=== PATIENT | male | born 1950 | race Caucasian/White ===

== ENCOUNTER 2018-07-12 02:09 | Observation (INO) ==
[2018-07-12] MEDS ORDERED: Isovue-370 500 ML BOTTLE IVP ONE (03:45)
--- NOTE | 2018-07-12 04:05 | Emergency Department Note ---
Disposition Clinical Impression: Intra abdominal hemorrhage, Supratherapeutic INR, Elevated troponin Disposition: Still a Patient Condition: Serious Referrals: Zohaib Palafox Jr, MD [Primary Care Provider] - Forms: ED Satisfaction Letter, Work/School Release Abdominal Pain HPI - General Chief Complaint: ED Abdominal Pain Stated Complaint: "Abd Swelling" Time Seen by Provider: 07/12/18 03:38 Source: patient Mode of arrival: private vehicle Limitations: no limitations Nursing Notes Reviewed: Yes Vital Signs Reviewed: Yes - History of Present Illness HPI Narrative: 68-year-old male history of prior CVA on Coumadin, status post CABG, CAD who presents to the ER with a complaint of abdominal pain, swelling, cough. He has had a cough for roughly 5 days. States he "felt like he was going to cough up the lung". Over the last 24 hours he has developed swelling to his left abdomen as well as pain there. States his last INR was checked a few weeks ago and he presumed it was normal as he was not called. He denies any hemoptysis, hematochezia, both appears no dysuria or hematuria. Pain is all left sided. Denies any trauma. No other complaints. Pt Subjective Complaint: abdominal pain Onset (ago): day(s) Consistency: constant Location: L flank Pain Severity: moderate Pain Scale: 8 Migration to: no migration Improves with: nothing Worsens with: nothing Treatments prior to arrival: none - Related Data Previous Rx's Medication Instructions Recorded levoFLOXacin [Levaquin] 500 mg PO DAILY #7 tablet 09/25/16 Allergies Allergy/AdvReac Type Severity Reaction Status Date / Time vancomycin Allergy Rash Verified 09/24/16 22:11 All systems ED: reviewed and negative except as stated. Cardiovascular: Denies: chest pain Respiratory: Reports: cough, dyspnea. Denies: sputum production Gastrointestinal: Reports: abdominal pain. Denies: nausea, vomiting, diarrhea, melena, hematochezia Genitourinary: Denies: dysuria, hematuria Abdominal Pain PMH - Past Medical History Medical history: Reports: CVA, hypertension, myocardial infarction Male Surgical History: Reports: coronary bypass (CABG), knee replacement, orthopedic, other, pacemaker/AICD Psychiatric history: Reports: no psych history - Social History Smoking status: Current every day smoker Alcohol use: Reports: occasionally Drug use: Reports: none Physical Exam - General Limitations: no limitations General appearance: alert, in no apparent distress - Head Head exam: atraumatic, normocephalic, normal inspection - Eye Eye exam: Present: normal appearance - ENT ENT exam: normal exam - Neck Neck exam: Present: normal inspection - Chest Chest inspection: Present: normal inspection, symmetric chest wall rise - Respiratory Respiratory exam: Present: normal lung sounds bilaterally - Cardiovascular Cardiovascular exam: Present: regular rate, normal rhythm, normal heart sounds - Abdominal Exam Abdominal exam: Present: soft, tenderness (Moderate left flank tenderness. There is an overlying area of ecchymosis of the lower left chest wall as well as the left flank. No anterior abdominal wall tenderness). Absent: distention, guarding, rigidity - Extremities Exam Extremities exam: Present: normal inspection, full ROM - Expanded Upper Extremity Exam Shoulder exam: Present: normal inspection, full ROM Arm exam: Present: normal inspection, full ROM Elbow exam: Present: normal inspection, full ROM Forearm/Wrist exam: Present: normal inspection, full ROM Hand exam: Present: normal inspection, full ROM - Expanded Lower Extremity Exam Hip/Pelvis exam: Present: normal inspection, full ROM Upper leg exam: Present: normal inspection, full ROM Knee exam: Present: normal inspection, full ROM Lower leg exam: Present: normal inspection, full ROM Ankle exam: Present: normal inspection, full ROM Foot/toe exam: Present: normal inspection, full ROM - Skin Skin exam: Present: warm, dry Course Course Narrative: Patient seen and examined. Vital signs reviewed. Plan for CT imaging of the chest abdomen pelvis, labs and repeat evaluation. - Reevaluation(s) Reevaluation #1: I pulled up the patient's imaging with concern for what I perceive his intra-abdominal blood. Discussed with the interpreting radiologist who reviewed the chest CT. He believes at this point this could be from the abdominal wall with hemorrhage into the abdominal cavity and retroperitoneal space. Discussed potentially speaking with interventional radiology or obtaining an angiogram. - Consultations Consultation #1: I spoke with the interventional radiology Department concerning this patient. Radiologist will be and around 8 AM. Discussed the patient's history, exam as well as imaging and concerns. Request to put in a formal consult and they will evaluate the patient. Vital Signs Temperature 98.0 F 07/12/18 02:26 Pulse Rate 85 07/12/18 02:26 Respiratory Rate 18 07/12/18 02:26 Blood Pressure 105/74 07/12/18 02:26 O2 Sat by Pulse Oximetry 97 07/12/18 02:26 Temperature 98.0 F 07/12/18 02:26 Pulse Rate 71 07/12/18 07:21 Respiratory Rate 14 07/12/18 07:21 Blood Pressure 139/81 07/12/18 07:21 O2 Sat by Pulse Oximetry 98 07/12/18 07:21 Oxygen Delivery Oxygen Delivery Room Air Abdominal Pain - MDM Narrative Medical decision making narrative: 68-year-old male with a supratherapeutic INR presenting with an atraumatic what appears to be intra-abdominal hemorrhage. He is otherwise in no distress and hemodynamically stable. Case discussed with radiology as well as interventional radiology. Awaiting formal interventional radiology consultation at the time of this documentation. The patient is signed out to day shift team pending final disposition. - Lab Data Lab results reviewed: Yes I reviewed the patient's lab results. Result diagrams: 07/12/18 04:33 07/12/18 04:33 Lab Results 07/12/18 07/12/18 07/12/18 Range/Units 04:33 04:33 04:33 WBC 8.5 (4.3-11.1) K/mcL RBC 4.40 (4.19-5.50) M/mcL Hgb 12.3 L (12.9-16.9) g/dL Hct 37.9 (37.5-50.1) % MCV 86.1 (83.0-100.0) fL MCH 28.0 (28.0-33.3) pg MCHC 32.5 (31.6-35.5) g/dL RDW 14.0 (11.5-14.5) % Plt Count 181 (140-400) K/mcL MPV 10.7 (9.4-12.4) fL Immature Gran % 0.6 (0-4) % Seg Neutrophils % 80.1 % Lymphocytes % 10.7 % Monocytes % 7.3 % Eosinophils % 0.9 % Basophils % 0.4 % Neutrophils # 6.8 (1.6-8.9) K/mcL Lymphocytes # 0.9 (0.6-4.6) K/mcL Monocytes # 0.6 (0.0-1.3) K/mcL Eosinophils # 0.1 (0.0-0.6) K/mcL Basophils # 0.0 (0.0-0.2) K/mcL PT 49.9 H* (9.4-12.1) Seconds INR 4.4 H* APTT 41.9 H (26.0-36.0) Seconds Sodium (136-145) mEq/L Potassium (3.5-5.1) mEq/L Chloride (98-107) mEq/L Carbon Dioxide (23-29) mEq/L BUN (8-23) mg/dL Creatinine (0.70-1.30) mg/dL Est GFR ( Amer) (> 60) Est GFR (Non-Af Amer) (> 60) BUN/Creatinine Ratio (6-26) Glucose (70-105) mg/dL Calculated Osmolality (280-300) Calcium (8.6-10.3) mg/dL Total Bilirubin (0.3-1.0) mg/dL Direct Bilirubin (0.0-0.2) mg/dL Indirect Bilirubin (0.0-1.2) mg/dL AST (13-39) Units/L ALT (7-52) Units/L Alkaline Phosphatase (34-104) Units/L Troponin I (< 0.04) ng/mL Serum Total Protein (6.4-8.9) g/dL Albumin (3.5-5.7) g/dL Globulin (2.4-3.5) g/dL Albumin/Globulin Ratio (1.1-2.2) Lipase (11-82) Units/L Urine Color Dark Yellow (Yellow) Urine Clarity Cloudy A (Clear) Urine pH 5.0 (5.0-8.0) pH Units Ur Specific [place] 1.027 H (1.010-1.025) Urine Protein 30 H (Neg-Trace) mg/dL Urine Glucose (UA) Normal (Normal) mg/dL Urine Ketones Trace H (Negative) mg/dL Urine Blood Negative (Negative) Urine Nitrite Negative (Negative) Urine Bilirubin Small H (Negative) Urine Urobilinogen Normal (Normal) mg/dL Ur Leukocyte Esterase Negative (Negative) Urine Microscopic RBC 3-5 H (0-3) per hpf Urine Microscopic WBC 5-15 H (0-3) per hpf Ur Squamous Epith Cells Many H (None-Few) per lpf Urine Bacteria None Seen (None-Few) per hpf Hyaline Casts Few (None-Few) per lpf Urine Yeast SOFTWARE SPECIALIST Ur Culture Indicated? NO (NO) 07/12/18 Range/Units 04:33 WBC (4.3-11.1) K/mcL RBC (4.19-5.50) M/mcL Hgb (12.9-16.9) g/dL Hct (37.5-50.1) % MCV (83.0-100.0) fL MCH (28.0-33.3) pg MCHC (31.6-35.5) g/dL RDW (11.5-14.5) % Plt Count (140-400) K/mcL MPV (9.4-12.4) fL Immature Gran % (0-4) % Seg Neutrophils % % Lymphocytes % % Monocytes % % Eosinophils % % Basophils % % Neutrophils # (1.6-8.9) K/mcL Lymphocytes # (0.6-4.6) K/mcL Monocytes # (0.0-1.3) K/mcL Eosinophils # (0.0-0.6) K/mcL Basophils # (0.0-0.2) K/mcL PT (9.4-12.1) Seconds INR APTT (26.0-36.0) Seconds Sodium 141 (136-145) mEq/L Potassium 3.8 (3.5-5.1) mEq/L Chloride 106 (98-107) mEq/L Carbon Dioxide 24 (23-29) mEq/L BUN 23 (8-23) mg/dL Creatinine 1.39 H (0.70-1.30) mg/dL Est GFR ( Amer) > 60 (> 60) Est GFR (Non-Af Amer) 51 L (> 60) BUN/Creatinine Ratio 17 (6-26) Glucose 163 H (70-105) mg/dL Calculated Osmolality 299 (280-300) Calcium 8.5 L (8.6-10.3) mg/dL Total Bilirubin 0.7 (0.3-1.0) mg/dL Direct Bilirubin 0.2 (0.0-0.2) mg/dL Indirect Bilirubin 0.5 (0.0-1.2) mg/dL AST 29 (13-39) Units/L ALT 27 (7-52) Units/L Alkaline Phosphatase 81 (34-104) Units/L Troponin I 0.05 H* (< 0.04) ng/mL Serum Total Protein 6.6 (6.4-8.9) g/dL Albumin 3.8 (3.5-5.7) g/dL Globulin 2.8 (2.4-3.5) g/dL Albumin/Globulin Ratio 1.4 (1.1-2.2) Lipase 14 (11-82) Units/L Urine Color (Yellow) Urine Clarity (Clear) Urine pH (5.0-8.0) pH Units Ur Specific [place] (1.010-1.025) Urine Protein (Neg-Trace) mg/dL Urine Glucose (UA) (Normal) mg/dL Urine Ketones (Negative) mg/dL Urine Blood (Negative) Urine Nitrite (Negative) Urine Bilirubin (Negative) Urine Urobilinogen (Normal) mg/dL Ur Leukocyte Esterase (Negative) Urine Microscopic RBC (0-3) per hpf Urine Microscopic WBC (0-3) per hpf Ur Squamous Epith Cells (None-Few) per lpf Urine Bacteria (None-Few) per hpf Hyaline Casts (None-Few) per lpf Urine Yeast Ur Culture Indicated? (NO) - Radiology Data Radiology results reviewed: Yes I reviewed the patient's radiology results. Abdomen/Pelvis CT 07/12/18 03:45 IMPRESSION: There is left lateral abdominal wall hemorrhage with adjacent hemorrhage extending into the abdominal cavity. There is also a small amount of retroperitoneal and intraperitoneal hemorrhage without evidence for traumatic visceral injury. CT angiography of the abdomen and pelvis could be considered to localize a source of bleeding. Critical results were called by Dr. Antione Quintero MD to the patient's physician on 07/12/2018 at 06:53. D/ / Antione Quintero MD / Antione Quintero MD Interpreting Provider: Antione Quintero MD Chest CT 07/12/18 03:45 IMPRESSION: 1. Left chest wall findings most likely represent intramuscular hemorrhage. This extends into the abdomen which will be dictated separately. 2. Right lower lobe airspace disease could represent aspiration or pneumonia. 3. Interval decrease in the size of the nodule in the middle lobe consistent with benign etiology. D/ / Antione Quintero MD / Antione Quintero MD Interpreting Provider: Antione Quintero MD - EKG Data EKG attestation: Yes I reviewed and interpreted this EKG. EKG results narrative: EKG demonstrates a ventricularly paced rhythm with a rate of 77 beats or minute. S.B.A.R. - S.B.A.R. Situation: Demographics, MOA Background: Presenting Complaint, Relevant PMH, Meds, & Allergies Assessment: Course and respsone to treatment, Exam Concerns, Patient/Family Expectation, Pertinant Lab Results Recommendation: Barrier(s) to disposition, Recommendation based on pending studies, treatments, or consults S.B.A.R. Report Given to: Drs. Mann/Conrado Orozco Repor Time: 07:27
[2018-07-12 05:08] LABS: Basophils % 0.4 %; Eosinophils # 0.1 K/mcL (0.0-0.6); Eosinophils % 0.9 %; Hematocrit 37.9 % (37.5-50.1); Hemoglobin 12.3 g/dL (12.9-16.9); Immature Granulocytes % 0.6 % (0-4); Lymphocytes # 0.9 K/mcL (0.6-4.6); Lymphocytes % 10.7 %; Mean Corpuscular HGB Conc 32.5 g/dL (31.6-35.5); Mean Corpuscular Volume 86.1 fL (83.0-100.0); Mean Platelet Volume 10.7 fL (9.4-12.4); Monocytes # 0.6 K/mcL (0.0-1.3); Monocytes % 7.3 %; Neutrophils # 6.8 K/mcL (1.6-8.9); Platelet Count 181 K/mcL (140-400); Segmented Neutrophils % 80.1 %
[2018-07-12 05:16] LABS: Bilirubin,Urine Small (Negative); Blood,Urine Negative (Negative); Clarity,Urine Cloudy (Clear); Color,Urine Dark Yellow (Yellow); Glucose,Urine (UA) Normal (Normal); Ketones,Urine Trace mg/dL (Negative); Leukocyte Esterase,Urine Negative (Negative); Nitrite,Urine Negative (Negative); Protein,Urine 30 mg/dL (Neg-Trace); Specific Gravity,Urine 1.027 (1.010-1.025); Urobilinogen,Urine Normal (Normal)
[2018-07-12 05:18] LABS: Activated Partial Thrombo Time 41.9 Seconds (26.0-36.0)
[2018-07-12 05:19] LABS: Bacteria,Urine None Seen per hpf (None-Few); Squamous Epithelial Cell,Urine Many per lpf (None-Few)
[2018-07-12 05:21] LABS: INR 4.4; Prothrombin Time 49.9 Seconds (9.4-12.1)
[2018-07-12 05:29] LABS: Alanine Aminotransferase 27 Units/L (7-52); Albumin 3.8 g/dL (3.5-5.7); Albumin/Globulin Ratio 1.4 (1.1-2.2); Alkaline Phosphatase 81 Units/L (34-104); Aspartate Amino Transferase 29 Units/L (13-39); BUN/Creatinine Ratio 17 (6-26); Bilirubin,Direct 0.2 mg/dL (0.0-0.2); Bilirubin,Indirect 0.5 mg/dL (0.0-1.2); Bilirubin,Total 0.7 mg/dL (0.3-1.0); Blood Urea Nitrogen 23 mg/dL (8-23); Calcium 8.5 mg/dL (8.6-10.3); Carbon Dioxide 24 mEq/L (23-29); Chloride 106 mEq/L (98-107); Globulin 2.8 g/dL (2.4-3.5); Glucose 163 mg/dL (70-105); Lipase 14 Units/L (11-82); Osmolality,Calculated 299 (280-300); Potassium 3.8 mEq/L (3.5-5.1); Sodium 141 mEq/L (136-145); Total Protein 6.6 g/dL (6.4-8.9); eGFR For Non-African Americans 51 (> 60)
[2018-07-12 05:34] LABS: Troponin I 0.05 ng/mL (< 0.04)
--- NOTE | 2018-07-12 05:52 | Emergency Department Note ---
Disposition Clinical Impression: Intra abdominal hemorrhage, Supratherapeutic INR, Elevated troponin, Spontaneous hemorrhage, Elevated INR Disposition: Still a Patient Condition: Fair Referrals: Zohaib Palafox Jr, MD [Primary Care Provider] - Forms: ED Satisfaction Letter, Work/School Release General Adult HPI - General Chief complaint: ED Abdominal Pain Stated complaint: "Abd Swelling" Time Seen by Provider: 07/12/18 03:38 Source: patient Mode of arrival: private vehicle Limitations: no limitations Nursing Notes Reviewed: Yes Vital Signs Reviewed: Yes - History of Present Illness Pain Scale: 8 - Related Data Previous Rx's Medication Instructions Recorded levoFLOXacin [Levaquin] 500 mg PO DAILY #7 tablet 09/25/16 Allergies Allergy/AdvReac Type Severity Reaction Status Date / Time vancomycin Allergy Rash Verified 09/24/16 22:11 Cardiovascular: Denies: chest pain Respiratory: Reports: cough, dyspnea. Denies: sputum production Gastrointestinal: Reports: abdominal pain. Denies: nausea, vomiting, diarrhea, melena, hematochezia Genitourinary: Denies: dysuria, hematuria Past Medical History - Past Medical History Medical history: Reports: CVA, hypertension, myocardial infarction Psychiatric history: Reports: no psych history - Social History Smoking Status: Current every day smoker Smokeless Tobacco Status: No Alcohol use: Reports: occasionally Drug use: Reports: none Physical Exam - General Limitations: no limitations General appearance: alert, in no apparent distress Course Vital Signs Temperature 98.0 F 07/12/18 02:26 Pulse Rate 85 07/12/18 02:26 Respiratory Rate 18 07/12/18 02:26 Blood Pressure 105/74 07/12/18 02:26 O2 Sat by Pulse Oximetry 97 07/12/18 02:26 Temperature 98.0 F 07/12/18 02:26 Pulse Rate 71 07/12/18 07:21 Respiratory Rate 14 07/12/18 07:21 Blood Pressure 139/81 07/12/18 07:21 O2 Sat by Pulse Oximetry 98 07/12/18 07:21 Oxygen Delivery Oxygen Delivery Room Air Medical Decision Making - Medical Records Medical records reviewed: Yes I reviewed the patient's medical records. - Lab Data Lab results reviewed: Yes I reviewed the patient's lab results. Result diagrams: 07/12/18 04:33 07/12/18 04:33 Lab Results 07/12/18 07/12/18 07/12/18 Range/Units 04:33 04:33 04:33 WBC 8.5 (4.3-11.1) K/mcL RBC 4.40 (4.19-5.50) M/mcL Hgb 12.3 L (12.9-16.9) g/dL Hct 37.9 (37.5-50.1) % MCV 86.1 (83.0-100.0) fL MCH 28.0 (28.0-33.3) pg MCHC 32.5 (31.6-35.5) g/dL RDW 14.0 (11.5-14.5) % Plt Count 181 (140-400) K/mcL MPV 10.7 (9.4-12.4) fL Immature Gran % 0.6 (0-4) % Seg Neutrophils % 80.1 % Lymphocytes % 10.7 % Monocytes % 7.3 % Eosinophils % 0.9 % Basophils % 0.4 % Neutrophils # 6.8 (1.6-8.9) K/mcL Lymphocytes # 0.9 (0.6-4.6) K/mcL Monocytes # 0.6 (0.0-1.3) K/mcL Eosinophils # 0.1 (0.0-0.6) K/mcL Basophils # 0.0 (0.0-0.2) K/mcL PT 49.9 H* (9.4-12.1) Seconds INR 4.4 H* APTT 41.9 H (26.0-36.0) Seconds Sodium (136-145) mEq/L Potassium (3.5-5.1) mEq/L Chloride (98-107) mEq/L Carbon Dioxide (23-29) mEq/L BUN (8-23) mg/dL Creatinine (0.70-1.30) mg/dL Est GFR ( Amer) (> 60) Est GFR (Non-Af Amer) (> 60) BUN/Creatinine Ratio (6-26) Glucose (70-105) mg/dL Calculated Osmolality (280-300) Calcium (8.6-10.3) mg/dL Total Bilirubin (0.3-1.0) mg/dL Direct Bilirubin (0.0-0.2) mg/dL Indirect Bilirubin (0.0-1.2) mg/dL AST (13-39) Units/L ALT (7-52) Units/L Alkaline Phosphatase (34-104) Units/L Troponin I (< 0.04) ng/mL Serum Total Protein (6.4-8.9) g/dL Albumin (3.5-5.7) g/dL Globulin (2.4-3.5) g/dL Albumin/Globulin Ratio (1.1-2.2) Lipase (11-82) Units/L Urine Color Dark Yellow (Yellow) Urine Clarity Cloudy A (Clear) Urine pH 5.0 (5.0-8.0) pH Units Ur Specific [place] 1.027 H (1.010-1.025) Urine Protein 30 H (Neg-Trace) mg/dL Urine Glucose (UA) Normal (Normal) mg/dL Urine Ketones Trace H (Negative) mg/dL Urine Blood Negative (Negative) Urine Nitrite Negative (Negative) Urine Bilirubin Small H (Negative) Urine Urobilinogen Normal (Normal) mg/dL Ur Leukocyte Esterase Negative (Negative) Urine Microscopic RBC 3-5 H (0-3) per hpf Urine Microscopic WBC 5-15 H (0-3) per hpf Ur Squamous Epith Cells Many H (None-Few) per lpf Urine Bacteria None Seen (None-Few) per hpf Hyaline Casts Few (None-Few) per lpf Urine Yeast TELEPHONE LINEWORKER Ur Culture Indicated? NO (NO) 07/12/18 Range/Units 04:33 WBC (4.3-11.1) K/mcL RBC (4.19-5.50) M/mcL Hgb (12.9-16.9) g/dL Hct (37.5-50.1) % MCV (83.0-100.0) fL MCH (28.0-33.3) pg MCHC (31.6-35.5) g/dL RDW (11.5-14.5) % Plt Count (140-400) K/mcL MPV (9.4-12.4) fL Immature Gran % (0-4) % Seg Neutrophils % % Lymphocytes % % Monocytes % % Eosinophils % % Basophils % % Neutrophils # (1.6-8.9) K/mcL Lymphocytes # (0.6-4.6) K/mcL Monocytes # (0.0-1.3) K/mcL Eosinophils # (0.0-0.6) K/mcL Basophils # (0.0-0.2) K/mcL PT (9.4-12.1) Seconds INR APTT (26.0-36.0) Seconds Sodium 141 (136-145) mEq/L Potassium 3.8 (3.5-5.1) mEq/L Chloride 106 (98-107) mEq/L Carbon Dioxide 24 (23-29) mEq/L BUN 23 (8-23) mg/dL Creatinine 1.39 H (0.70-1.30) mg/dL Est GFR ( Amer) > 60 (> 60) Est GFR (Non-Af Amer) 51 L (> 60) BUN/Creatinine Ratio 17 (6-26) Glucose 163 H (70-105) mg/dL Calculated Osmolality 299 (280-300) Calcium 8.5 L (8.6-10.3) mg/dL Total Bilirubin 0.7 (0.3-1.0) mg/dL Direct Bilirubin 0.2 (0.0-0.2) mg/dL Indirect Bilirubin 0.5 (0.0-1.2) mg/dL AST 29 (13-39) Units/L ALT 27 (7-52) Units/L Alkaline Phosphatase 81 (34-104) Units/L Troponin I 0.05 H* (< 0.04) ng/mL Serum Total Protein 6.6 (6.4-8.9) g/dL Albumin 3.8 (3.5-5.7) g/dL Globulin 2.8 (2.4-3.5) g/dL Albumin/Globulin Ratio 1.4 (1.1-2.2) Lipase 14 (11-82) Units/L Urine Color (Yellow) Urine Clarity (Clear) Urine pH (5.0-8.0) pH Units Ur Specific [place] (1.010-1.025) Urine Protein (Neg-Trace) mg/dL Urine Glucose (UA) (Normal) mg/dL Urine Ketones (Negative) mg/dL Urine Blood (Negative) Urine Nitrite (Negative) Urine Bilirubin (Negative) Urine Urobilinogen (Normal) mg/dL Ur Leukocyte Esterase (Negative) Urine Microscopic RBC (0-3) per hpf Urine Microscopic WBC (0-3) per hpf Ur Squamous Epith Cells (None-Few) per lpf Urine Bacteria (None-Few) per hpf Hyaline Casts (None-Few) per lpf Urine Yeast Ur Culture Indicated? (NO) - Radiology Data Radiology results reviewed: Yes I reviewed the patient's radiology results. Abdomen/Pelvis CT 07/12/18 03:45 IMPRESSION: There is left lateral abdominal wall hemorrhage with adjacent hemorrhage extending into the abdominal cavity. There is also a small amount of retroperitoneal and intraperitoneal hemorrhage without evidence for traumatic visceral injury. CT angiography of the abdomen and pelvis could be considered to localize a source of bleeding. Critical results were called by Dr. Antione Quintero MD to the patient's physician on 07/12/2018 at 06:53. D/ / Antione Quintero MD / Antione Quintero MD Interpreting Provider: Antione Quintero MD Chest CT 07/12/18 03:45 IMPRESSION: 1. Left chest wall findings most likely represent intramuscular hemorrhage. This extends into the abdomen which will be dictated separately. 2. Right lower lobe airspace disease could represent aspiration or pneumonia. 3. Interval decrease in the size of the nodule in the middle lobe consistent with benign etiology. D/ / Antione Quintero MD / Antione Quintero MD Interpreting Provider: Antione Quintero MD - EKG Data EKG #1 EKG attestation: Yes I reviewed and interpreted this EKG. EKG results narrative: EKG showed an atrial ventricular pacemaker with totally paced rhythm with a rate of 77. Critical Care Time Critical Care Time: Yes Total Critical Care Time: 40 Attestation: Critical care performed: Time is exclusive of separately billable procedures. Time includes: direct pa tient care, patient reassessment, coordination of patient care, interpretation of data (laboratory data, radiology data, and respiratory data), review of patient's medical records, medical consultation and documentation of patient care. Procedures included in critical care time: Procedures excluded from critical care time: Attestation Statement - Attestation Attestation: Lei Snow MD, personally evaluated this patient and discussed their management with the resident physician. I reviewed the resident's note and agree with the documented findings, medical decision making, and plan of care. 68-year-old male presents to the emergency department with a complaint of increasing swelling and discomfort in the left flank and left lateral abdominal area over the past 24 hours. Also some bruising noted to the area. Patient denies any fall or injury. He states he has been coughing a lot. No generalized abdominal pain. Patient is on Coumadin for atrial fibrillation. He has a pacemaker. No other abnormal bleeding or bruising. Patient's last INR at the anticoagulation clinic was on 06/27 and was 2.9. On examination patient is a well-developed well-nourished elderly male in no acute distress. He is alert and oriented 3. There is no cyanosis or diaphoresis. Breath sounds are clear and equal bilaterally. Heart regular rate and rhythm. Abdomen soft with normal bowel sounds. There is an area of swelling with increased firmness over the left flank area. Mild discoloration with some obvious ecchymosis over the inferior aspect laterally. EKG showed an atrial ventricular pacemaker with totally paced rhythm with a rate of 77. Labs reviewed. CTs reviewed. Dr. Portillo discussed the CTs with the radiologist. Interventional radiology was consulted for further evaluation of the patient's hemorrhaging. At shift change patient is signed out to the oncoming dayshift team, Dr. Camp and Dr. Mann.
[2018-07-12 05:56] LABS: Hyaline Casts,Urine Few per lpf (None-Few)
--- NOTE | 2018-07-12 07:28 | Emergency Department Note ---
Disposition Clinical Impression: Intra abdominal hemorrhage, Supratherapeutic INR, Elevated troponin, Spontaneous hemorrhage, Elevated INR Disposition: Admitted As Inpatient Condition: Good Referrals: Zohaib Palafox Jr, MD [Primary Care Provider] - Forms: ED Satisfaction Letter, Work/School Release General Adult HPI - General Chief complaint: ED Abdominal Pain Stated complaint: "Abd Swelling" Time Seen by Provider: 07/12/18 03:38 Source: patient Mode of arrival: private vehicle Limitations: no limitations - History of Present Illness Pain Scale: 0 - Related Data Previous Rx's Medication Instructions Recorded levoFLOXacin [Levaquin] 500 mg PO DAILY #7 tablet 09/25/16 Allergies Allergy/AdvReac Type Severity Reaction Status Date / Time vancomycin Allergy Rash Verified 09/24/16 22:11 Cardiovascular: Denies: chest pain Respiratory: Reports: cough, dyspnea. Denies: sputum production Gastrointestinal: Reports: abdominal pain. Denies: nausea, vomiting, diarrhea, melena, hematochezia Genitourinary: Denies: dysuria, hematuria Past Medical History - Past Medical History Medical history: Reports: CVA, hypertension, myocardial infarction Psychiatric history: Reports: no psych history - Social History Smoking Status: Current every day smoker Smokeless Tobacco Status: No Alcohol use: Reports: occasionally Drug use: Reports: none Physical Exam - General Limitations: no limitations General appearance: alert, in no apparent distress Course Course Narrative: Patient taken over at sign out from Dr. Moses and Dr. Melton. Patient's symptoms include concern for abdominal swelling and ecchymosis to the left side of the abdomen and flank. Patient states he is on Coumadin. Patient has had issues with elevated INR in the past. Patient denies any trauma or injections. Patient has had significant coughing episodes. Patient's INR was found to be elevated at 4.4. Vitamin K administered. Interventional radiology has are to been consulted and is going to evaluate the patient. Resting comfortably in bed, no acute distress, vital signs within normal limits, abdomen with mild tenderness left lower quadrant with associated overlying bruising most significant is a left lower lateral abdomen extending towards the left flank. Awaiting IR consult. PCC - Consultations Consultation #1: Case is discussed with interventional radiology, Dr. Law, patient has small intramuscular bleed which she believes he can seek medication through the abdominal wall into the retroperitoneal structures which is likely secondary to a previous abdominal wall hernia. The bleed is described as something that would not be amenable to embolization. Likely from a very small artery. Likely a slow bleed as this has been going on for over 24 hours. Recommend's reversal of of INR and continued monitoring of H&H. If H&H continues to drop patient m ay benefit from a CTA and further embolization. Given the time of day and amount of resources given throughout the day this would be something that would be able to be accomplished [facility]. I will further discuss this with the hospitalist and the patient will be admitted for further monitoring. Consultation #2: Discussed with hospitalist. Discussed the plan. Overall CAT scan does show concern for pneumonia. Patient will also be placed on antibiotics. H&H will continue to be monitored. If H&H drops, Interventional, will be recontacted and potentially undergo further treatment. Patient is expected to improve with PCC and reversal. Vital Signs Temperature 98.0 F 07/12/18 02:26 Pulse Rate 85 07/12/18 02:26 Respiratory Rate 18 07/12/18 02:26 Blood Pressure 105/74 07/12/18 02:26 O2 Sat by Pulse Oximetry 97 07/12/18 02:26 Temperature 98.0 F 07/12/18 02:26 Pulse Rate 71 07/12/18 07:21 Respiratory Rate 14 07/12/18 07:21 Blood Pressure 139/81 07/12/18 07:21 O2 Sat by Pulse Oximetry 98 07/12/18 07:21 Oxygen Delivery Oxygen Delivery Room Air Medical Decision Making - Lab Data Result diagrams: 07/12/18 04:33 07/12/18 04:33 Lab Results 07/12/18 07/12/18 07/12/18 Range/Units 04:33 04:33 04:33 WBC 8.5 (4.3-11.1) K/mcL RBC 4.40 (4.19-5.50) M/mcL Hgb 12.3 L (12.9-16.9) g/dL Hct 37.9 (37.5-50.1) % MCV 86.1 (83.0-100.0) fL MCH 28.0 (28.0-33.3) pg MCHC 32.5 (31.6-35.5) g/dL RDW 14.0 (11.5-14.5) % Plt Count 181 (140-400) K/mcL MPV 10.7 (9.4-12.4) fL Immature Gran % 0.6 (0-4) % Seg Neutrophils % 80.1 % Lymphocytes % 10.7 % Monocytes % 7.3 % Eosinophils % 0.9 % Basophils % 0.4 % Neutrophils # 6.8 (1.6-8.9) K/mcL Lymphocytes # 0.9 (0.6-4.6) K/mcL Monocytes # 0.6 (0.0-1.3) K/mcL Eosinophils # 0.1 (0.0-0.6) K/mcL Basophils # 0.0 (0.0-0.2) K/mcL PT 49.9 H* (9.4-12.1) Seconds INR 4.4 H* APTT 41.9 H (26.0-36.0) Seconds Sodium (136-145) mEq/L Potassium (3.5-5.1) mEq/L Chloride (98-107) mEq/L Carbon Dioxide (23-29) mEq/L BUN (8-23) mg/dL Creatinine (0.70-1.30) mg/dL Est GFR ( Amer) (> 60) Est GFR (Non-Af Amer) (> 60) BUN/Creatinine Ratio (6-26) Glucose (70-105) mg/dL Calculated Osmolality (280-300) Calcium (8.6-10.3) mg/dL Total Bilirubin (0.3-1.0) mg/dL Direct Bilirubin (0.0-0.2) mg/dL Indirect Bilirubin (0.0-1.2) mg/dL AST (13-39) Units/L ALT (7-52) Units/L Alkaline Phosphatase (34-104) Units/L Troponin I (< 0.04) ng/mL Serum Total Protein (6.4-8.9) g/dL Albumin (3.5-5.7) g/dL Globulin (2.4-3.5) g/dL Albumin/Globulin Ratio (1.1-2.2) Lipase (11-82) Units/L Urine Color Dark Yellow (Yellow) Urine Clarity Cloudy A (Clear) Urine pH 5.0 (5.0-8.0) pH Units Ur Specific [place] 1.027 H (1.010-1.025) Urine Protein 30 H (Neg-Trace) mg/dL Urine Glucose (UA) Normal (Normal) mg/dL Urine Ketones Trace H (Negative) mg/dL Urine Blood Negative (Negative) Urine Nitrite Negative (Negative) Urine Bilirubin Small H (Negative) Urine Urobilinogen Normal (Normal) mg/dL Ur Leukocyte Esterase Negative (Negative) Urine Microscopic RBC 3-5 H (0-3) per hpf Urine Microscopic WBC 5-15 H (0-3) per hpf Ur Squamous Epith Cells Many H (None-Few) per lpf Urine Bacteria None Seen (None-Few) per hpf Hyaline Casts Few (None-Few) per lpf Urine Yeast [employer] Ur Culture Indicated? NO (NO) 07/12/18 Range/Units 04:33 WBC (4.3-11.1) K/mcL RBC (4.19-5.50) M/mcL Hgb (12.9-16.9) g/dL Hct (37.5-50.1) % MCV (83.0-100.0) fL MCH (28.0-33.3) pg MCHC (31.6-35.5) g/dL RDW (11.5-14.5) % Plt Count (140-400) K/mcL MPV (9.4-12.4) fL Immature Gran % (0-4) % Seg Neutrophils % % Lymphocytes % % Monocytes % % Eosinophils % % Basophils % % Neutrophils # (1.6-8.9) K/mcL Lymphocytes # (0.6-4.6) K/mcL Monocytes # (0.0-1.3) K/mcL Eosinophils # (0.0-0.6) K/mcL Basophils # (0.0-0.2) K/mcL PT (9.4-12.1) Seconds INR APTT (26.0-36.0) Seconds Sodium 141 (136-145) mEq/L Potassium 3.8 (3.5-5.1) mEq/L Chloride 106 (98-107) mEq/L Carbon Dioxide 24 (23-29) mEq/L BUN 23 (8-23) mg/dL Creatinine 1.39 H (0.70-1.30) mg/dL Est GFR ( Amer) > 60 (> 60) Est GFR (Non-Af Amer) 51 L (> 60) BUN/Creatinine Ratio 17 (6-26) Glucose 163 H (70-105) mg/dL Calculated Osmolality 299 (280-300) Calcium 8.5 L (8.6-10.3) mg/dL Total Bilirubin 0.7 (0.3-1.0) mg/dL Direct Bilirubin 0.2 (0.0-0.2) mg/dL Indirect Bilirubin 0.5 (0.0-1.2) mg/dL AST 29 (13-39) Units/L ALT 27 (7-52) Units/L Alkaline Phosphatase 81 (34-104) Units/L Troponin I 0.05 H* (< 0.04) ng/mL Serum Total Protein 6.6 (6.4-8.9) g/dL Albumin 3.8 (3.5-5.7) g/dL Globulin 2.8 (2.4-3.5) g/dL Albumin/Globulin Ratio 1.4 (1.1-2.2) Lipase 14 (11-82) Units/L Urine Color (Yellow) Urine Clarity (Clear) Urine pH (5.0-8.0) pH Units Ur Specific [place] (1.010-1.025) Urine Protein (Neg-Trace) mg/dL Urine Glucose (UA) (Normal) mg/dL Urine Ketones (Negative) mg/dL Urine Blood (Negative) Urine Nitrite (Negative) Urine Bilirubin (Negative) Urine Urobilinogen (Normal) mg/dL Ur Leukocyte Esterase (Negative) Urine Microscopic RBC (0-3) per hpf Urine Microscopic WBC (0-3) per hpf Ur Squamous Epith Cells (None-Few) per lpf Urine Bacteria (None-Few) per hpf Hyaline Casts (None-Few) per lpf Urine Yeast Ur Culture Indicated? (NO)
--- NOTE | 2018-07-12 07:30 | Emergency Department Note ---
Disposition Clinical Impression: Intra abdominal hemorrhage, Supratherapeutic INR, Elevated troponin, Spontaneous hemorrhage, Elevated INR Disposition: Admitted As Inpatient Condition: Fair Referrals: Zohaib Palafox Jr, MD [Primary Care Provider] - Forms: ED Satisfaction Letter, Work/School Release Time of Disposition: 08:43 General Adult HPI - General Chief complaint: ED Abdominal Pain Stated complaint: "Abd Swelling" Time Seen by Provider: 07/12/18 03:38 Source: patient Mode of arrival: private vehicle Limitations: no limitations - History of Present Illness Pain Scale: 0 - Related Data Previous Rx's Medication Instructions Recorded levoFLOXacin [Levaquin] 500 mg PO DAILY #7 tablet 09/25/16 Allergies Allergy/AdvReac Type Severity Reaction Status Date / Time vancomycin Allergy Rash Verified 09/24/16 22:11 Cardiovascular: Denies: chest pain Respiratory: Reports: cough, dyspnea. Denies: sputum production Gastrointestinal: Reports: abdominal pain. Denies: nausea, vomiting, diarrhea, melena, hematochezia Genitourinary: Denies: dysuria, hematuria Past Medical History - Past Medical History Medical history: Reports: CVA, hypertension, myocardial infarction Psychiatric history: Reports: no psych history - Social History Smoking Status: Current every day smoker Smokeless Tobacco Status: No Alcohol use: Reports: occasionally Drug use: Reports: none Physical Exam - General Limitations: no limitations General appearance: alert, in no apparent distress Course Vital Signs Temperature 98.0 F 07/12/18 02:26 Pulse Rate 85 07/12/18 02:26 Respiratory Rate 18 07/12/18 02:26 Blood Pressure 105/74 07/12/18 02:26 O2 Sat by Pulse Oximetry 97 07/12/18 02:26 Temperature 98.0 F 07/12/18 02:26 Pulse Rate 71 07/12/18 07:21 Respiratory Rate 14 07/12/18 07:21 Blood Pressure 139/81 07/12/18 07:21 O2 Sat by Pulse Oximetry 98 07/12/18 07:21 Oxygen Delivery Oxygen Delivery Room Air Medical Decision Making - MDM Narrative Medical decision making narrative: Patient was received in signout from Dr. Moses and Dr. Portillo. Please see their documentation for history of presenting illness, physical exam and initial medical decision making. At the time of signout the patient was pending IR evaluation. Disposition will be pending their recommendations. Patient did receive vitamin K for reversal of his INR of 4.4 and active bleeding. Patient also be given PCC. INR has been talked to him and did not feel that there was any acute intervention that was necessary at this time after review the images. They recommended reversal of the patient's Coumadin. Patient will be reversed and admitted to the hospitalist service. There will be repeat hemoglobin and INR is checked. Patient has been stable throughout his stay here in the emergency department does not require any acute intervention at this time. Patient was admitted to the hospitalist. - Lab Data Result diagrams: 07/12/18 04:33 07/12/18 04:33 Lab Results 07/12/18 07/12/18 07/12/18 Range/Units 04:33 04:33 04:33 WBC 8.5 (4.3-11.1) K/mcL RBC 4.40 (4.19-5.50) M/mcL Hgb 12.3 L (12.9-16.9) g/dL Hct 37.9 (37.5-50.1) % MCV 86.1 (83.0-100.0) fL MCH 28.0 (28.0-33.3) pg MCHC 32.5 (31.6-35.5) g/dL RDW 14.0 (11.5-14.5) % Plt Count 181 (140-400) K/mcL MPV 10.7 (9.4-12.4) fL Immature Gran % 0.6 (0-4) % Seg Neutrophils % 80.1 % Lymphocytes % 10.7 % Monocytes % 7.3 % Eosinophils % 0.9 % Basophils % 0.4 % Neutrophils # 6.8 (1.6-8.9) K/mcL Lymphocytes # 0.9 (0.6-4.6) K/mcL Monocytes # 0.6 (0.0-1.3) K/mcL Eosinophils # 0.1 (0.0-0.6) K/mcL Basophils # 0.0 (0.0-0.2) K/mcL PT 49.9 H* (9.4-12.1) Seconds INR 4.4 H* APTT 41.9 H (26.0-36.0) Seconds Sodium (136-145) mEq/L Potassium (3.5-5.1) mEq/L Chloride (98-107) mEq/L Carbon Dioxide (23-29) mEq/L BUN (8-23) mg/dL Creatinine (0.70-1.30) mg/dL Est GFR ( Amer) (> 60) Est GFR (Non-Af Amer) (> 60) BUN/Creatinine Ratio (6-26) Glucose (70-105) mg/dL Calculated Osmolality (280-300) Calcium (8.6-10.3) mg/dL Total Bilirubin (0.3-1.0) mg/dL Direct Bilirubin (0.0-0.2) mg/dL Indirect Bilirubin (0.0-1.2) mg/dL AST (13-39) Units/L ALT (7-52) Units/L Alkaline Phosphatase (34-104) Units/L Troponin I (< 0.04) ng/mL Serum Total Protein (6.4-8.9) g/dL Albumin (3.5-5.7) g/dL Globulin (2.4-3.5) g/dL Albumin/Globulin Ratio (1.1-2.2) Lipase (11-82) Units/L Urine Color Dark Yellow (Yellow) Urine Clarity Cloudy A (Clear) Urine pH 5.0 (5.0-8.0) pH Units Ur Specific [place] 1.027 H (1.010-1.025) Urine Protein 30 H (Neg-Trace) mg/dL Urine Glucose (UA) Normal (Normal) mg/dL Urine Ketones Trace H (Negative) mg/dL Urine Blood Negative (Negative) Urine Nitrite Negative (Negative) Urine Bilirubin Small H (Negative) Urine Urobilinogen Normal (Normal) mg/dL Ur Leukocyte Esterase Negative (Negative) Urine Microscopic RBC 3-5 H (0-3) per hpf Urine Microscopic WBC 5-15 H (0-3) per hpf Ur Squamous Epith Cells Many H (None-Few) per lpf Urine Bacteria None Seen (None-Few) per hpf Hyaline Casts Few (None-Few) per lpf Urine Yeast POWER ORIGINATOR Ur Culture Indicated? NO (NO) 07/12/18 Range/Units 04:33 WBC (4.3-11.1) K/mcL RBC (4.19-5.50) M/mcL Hgb (12.9-16.9) g/dL Hct (37.5-50.1) % MCV (83.0-100.0) fL MCH (28.0-33.3) pg MCHC (31.6-35.5) g/dL RDW (11.5-14.5) % Plt Count (140-400) K/mcL MPV (9.4-12.4) fL Immature Gran % (0-4) % Seg Neutrophils % % Lymphocytes % % Monocytes % % Eosinophils % % Basophils % % Neutrophils # (1.6-8.9) K/mcL Lymphocytes # (0.6-4.6) K/mcL Monocytes # (0.0-1.3) K/mcL Eosinophils # (0.0-0.6) K/mcL Basophils # (0.0-0.2) K/mcL PT (9.4-12.1) Seconds INR APTT (26.0-36.0) Seconds Sodium 141 (136-145) mEq/L Potassium 3.8 (3.5-5.1) mEq/L Chloride 106 (98-107) mEq/L Carbon Dioxide 24 (23-29) mEq/L BUN 23 (8-23) mg/dL Creatinine 1.39 H (0.70-1.30) mg/dL Est GFR ( Amer) > 60 (> 60) Est GFR (Non-Af Amer) 51 L (> 60) BUN/Creatinine Ratio 17 (6-26) Glucose 163 H (70-105) mg/dL Calculated Osmolality 299 (280-300) Calcium 8.5 L (8.6-10.3) mg/dL Total Bilirubin 0.7 (0.3-1.0) mg/dL Direct Bilirubin 0.2 (0.0-0.2) mg/dL Indirect Bilirubin 0.5 (0.0-1.2) mg/dL AST 29 (13-39) Units/L ALT 27 (7-52) Units/L Alkaline Phosphatase 81 (34-104) Units/L Troponin I 0.05 H* (< 0.04) ng/mL Serum Total Protein 6.6 (6.4-8.9) g/dL Albumin 3.8 (3.5-5.7) g/dL Globulin 2.8 (2.4-3.5) g/dL Albumin/Globulin Ratio 1.4 (1.1-2.2) Lipase 14 (11-82) Units/L Urine Color (Yellow) Urine Clarity (Clear) Urine pH (5.0-8.0) pH Units Ur Specific [place] (1.010-1.025) Urine Protein (Neg-Trace) mg/dL Urine Glucose (UA) (Normal) mg/dL Urine Ketones (Negative) mg/dL Urine Blood (Negative) Urine Nitrite (Negative) Urine Bilirubin (Negative) Urine Urobilinogen (Normal) mg/dL Ur Leukocyte Esterase (Negative) Urine Microscopic RBC (0-3) per hpf Urine Microscopic WBC (0-3) per hpf Ur Squamous Epith Cells (None-Few) per lpf Urine Bacteria (None-Few) per hpf Hyaline Casts (None-Few) per lpf Urine Yeast Ur Culture Indicated? (NO)
[2018-07-12] MEDS ORDERED: [UNRECOGNIZED DRUG - OTHER] IVPB STA (08:20)
[2018-07-12] MEDS ORDERED: HUM PROTHROMBIN CPLX IVPB STA (08:20)
[2018-07-12] MEDS ORDERED: HUM PROTHROMBIN CPLX IVPB ONE (08:30)
[2018-07-12] MEDS ORDERED: [UNRECOGNIZED DRUG - OTHER] IVPB ONE (08:30)
[2018-07-12] MEDS ORDERED: cefTRIAXone 1,000 MG in Water for inj. (sterile) 20 ML 10 ML IVP ONE (08:35)
[2018-07-12] MEDS ORDERED: Azithromycin 500 MG in D5% in Water 250 ML IVPB ONE (08:35)
[2018-07-12 09:21] LABS: Hematocrit 38.2 % (37.5-50.1); Hemoglobin 12.1 g/dL (12.9-16.9)
[2018-07-12] MEDS ORDERED: Naloxone 0.4 MG/ML INJ IVP PRN (10:13)
[2018-07-12] MEDS ORDERED: D5% in Water 1,000 ML IVC PRN (10:17)
[2018-07-12] MEDS ORDERED: Dextrose 4 GM Chewable Tablets PO PRN ×2 (10:17)
[2018-07-12] MEDS ORDERED: Dextrose Gel 15 GM/37.5 ML TUBE PO PRN ×2 (10:17)
[2018-07-12] MEDS ORDERED: *HR* Dextrose 50 % in Water (Syg) 50 ML SYRINGE IVP PRN (10:17)
[2018-07-12] MEDS ORDERED: D5% in 0.9% NACL 1,000 ML IVC SCH (10:30)
--- NOTE | 2018-07-12 10:44 | Internal Med History&Physical ---
Date of Encounter: 07/12/18 Time of Encounter: 10:38 Internal Medicine - H&P: HPI Chief complaint: productive cough and swealling of the left side of the abdomen Admitted From: Home Plans for Post Hospital Care: Home History of present illness: Mr. De Leon is a 68 year old male PMH of A.roman on warfarin, CAD s/p CABG in the 90s, bradycardia s/p pacemaker, Cerebellar cva, HTN, HLD and right knee replacement. Patient presented to the ED due to swelling to the left side of his abdomen. He reported having flu like symptoms for the past 4-5 days associated with productive cough of pink/yellow sputum and subjective fever. He thought he was having a viral illness. and decided to waited out at home, but for the past 34 hours every time he coughed he has having abdominal discomfort and noticed the left side of his stomach was getting swollen and had developed some skin hematoma on the LLQ and decided to come to the ED. He denies chest pain, nausea or vomiting. denies see blood in his urine or stool. Patient was found to have a supratherapeutic INR and a left lateral abdominal wall hemorrhage with adjacent hemorrhage extending into the abdominal cavity. Hospitalist team called for coordination of care. Past Med Surg Social Fam HX - Past Medical History Medical history: CVA, hypertension, myocardial infarction Psychiatric history: no psych history - Social History Smoking Status: Current every day smoker Smokeless Tobacco Status: No Alcohol use: occasionally Drug use: none Internal Medicine - H&P: Meds No Known Home Drugs 07/12/18 [History] Allergy/AdvReac Type Severity Reaction Status Date / Time vancomycin Allergy Rash Verified 09/24/16 22:11 All Systems PM: A 10-system review of systems was performed and is negative for pertinent findings except as documented above in the HPI. - Constitutional Constitutional: fever(s), no chills, no weakness - EENT Eyes: no itchy eyes Nose, mouth and throat: no bleeding gums - Cardiovascular Cardiovascular ROS IM: no chest pain, no dyspnea, no dyspnea on exertion, no lightheadedness, no orthopnea, no palpitations - Respiratory Respiratory: cough, excessive phlegm production, change in phlegm color, no hemoptysis, no dyspnea on exertion, no wheezing, no chest congestion - Gastrointestinal Gastrointestinal: abdominal pain, no coffee ground emesis, no constipation, no nausea, no vomiting - Genitourinary Genitourinary ROS male: no dysuria, no hematuria, no urinary frequency, no urinary hesitancy, no urinary urgency - Musculoskeletal Musculoskeletal ROS IM: no back pain, no muscle weakness - Integumentary Integumentary IM: other (hematoma LLQ. ) - Neurological Neurological ROS: no abnormal gait, no dizziness, no weakness - Psychiatric Psychiatric: no anxiety, no irritability - Endocrine Endocrine IM: no cold intolerance - Hematologic/Lymphatic Hematologic/Lymphatic: no easy bleeding - Allergic/Immunologic Allergic/Immunologic: no GI upset with certain foods Additional comments: Rest of a 10 review of system negative. - Constitutional Vitals: Temp Pulse Resp BP Pulse Ox 99.0 F 76 16 118/86 99 07/12/18 09:56 07/12/18 09:56 07/12/18 09:56 07/12/18 09:56 07/12/18 09:56 Exam: Vitals: Reviewed General: Alert and oriented x4. In mild distress due to abdominal discomfort and productive cough Skin: hematoma on the LLQ HEENT: EOM, pupils equal, round and reactive. Cardiovascular: Irregularly, irregular, normal S1 & S2, no rubs, murmurs or gallops. Lungs: CTA b/l, no wheezes or crackles. Abdomen: Obese, soft, non-tender, no rigidity. NABS in all 4 quadrants Extremities: No deformity, no edema or tenderness, no joint swelling or clubbing. Neurological: Normal cognition and motor skills. Rest of the physical exam is non contributory Internal Med - H&P Results - Labs CBC & Chem 7: 07/12/18 08:56 07/12/18 04:33 Labs: Short CBC 07/12/18 07/12/18 Range/Units 04:33 08:56 WBC 8.5 (4.3-11.1) K/mcL Hgb 12.3 L 12.1 L (12.9-16.9) g/dL Hct 37.9 38.2 (37.5-50.1) % Plt Count 181 (140-400) K/mcL Neutrophils # 6.8 (1.6-8.9) K/mcL BMP 07/12/18 04:33 Sodium 141 Potassium 3.8 Chloride 106 Carbon Dioxide 24 BUN 23 Creatinine 1.39 H Glucose 163 H Calcium 8.5 L Cardiac Enzymes 07/12/18 Range/Units 04:33 Troponin I 0.05 H* (< 0.04) ng/mL Liver Function 07/12/18 Range/Units 04:33 Total Bilirubin 0.7 (0.3-1.0) mg/dL Direct Bilirubin 0.2 (0.0-0.2) mg/dL AST 29 (13-39) Units/L ALT 27 (7-52) Units/L Alkaline Phosphatase 81 (34-104) Units/L Albumin 3.8 (3.5-5.7) g/dL Urine 07/12/18 Range/Units 04:33 Urine Color Dark Yellow (Yellow) Urine Clarity Cloudy A (Clear) Urine pH 5.0 (5.0-8.0) pH Units Ur Specific [place] 1.027 H (1.010-1.025) Urine Protein 30 H (Neg-Trace) mg/dL Urine Glucose (UA) Normal (Normal) mg/dL - Impressions ITS Impressions Abdomen/Pelvis CT 07/12/18 03:45 IMPRESSION: There is left lateral abdominal wall hemorrhage with adjacent hemorrhage extending into the abdominal cavity. There is also a small amount of retroperitoneal and intraperitoneal hemorrhage without evidence for traumatic visceral injury. CT angiography of the abdomen and pelvis could be considered to localize a source of bleeding. Critical results were called by Dr. Antione Quintero MD to the patient's physician on 07/12/2018 at 06:53. D/ / Antione Quintero MD / Antione Quintero MD Interpreting Provider: Antione Quintero MD Chest CT 07/12/18 03:45 IMPRESSION: 1. Left chest wall findings most likely represent intramuscular hemorrhage. This extends into the abdomen which will be dictated separately. 2. Right lower lobe airspace disease could represent aspiration or pneumonia. 3. Interval decrease in the size of the nodule in the middle lobe consistent with benign etiology. D/ / Antione Quintero MD / Antione Quintero MD Interpreting Provider: Antione Quintero MD - Diagnostic Studies CT scan - chest Status: image reviewed by me (right lower lobe infiltrate ) - Assessment and Plan (1) Intra abdominal hemorrhage Current Visit: Yes Status: Acute Assessment and plan: CT/CT abd pelvis w iv no oral IMPRESSION: There is left lateral abdominal wall hemorrhage with adjacent hemorrhage extending into the abdominal cavity. CT/CT chest w con IMPRESSION: 1. Left chest wall findings most likely represent intramuscular hemorrhage. This extends into the abdomen which will be dictated separately. Plan IR has been consulted recommended conservative management Serial CBC Q8HRs type and screen crossmatch 1 unit of PRBCs patient given vit k 5mg x1 and prothrobin complex due to supratherapeutic INR (2) Pneumonia Current Visit: Yes Status: Acute Assessment and plan: patient started on empirically on ceftriaxone 1gm/IV daily and azithromycin 500mg/IV daily sputum culture and gram stain ordered urine for atypical ordered incentive spirometry Qualifiers: Pneumonia type: due to unspecified organism Laterality: right Lung location: lower lobe of lung Qualified Code(s): J18.1 - Lobar pneumonia, unspecified organism (3) Supratherapeutic INR Current Visit: Yes Status: Acute Assessment and plan: patient on Warfarin due to A.fib warfarin held due to INR 4.4 patient given vit k and prothrombin complex due to abdominal bleeding. will repeat INR (4) Atrial fibrillation, chronic Current Visit: No Status: Chronic Assessment and plan: as per patient he is not on any medications for rate controlled due to bradycardia telemetry monitoring. (5) DVT prophylaxis Current Visit: Yes Status: Acute Assessment and plan: Intermittent pneumatic compressions no chemical DVT prophylaxis due to acute bleeding (6) HLD (hyperlipidemia) Current Visit: Yes Status: Chronic Assessment and plan: off medications lipid panel ordered Qualifiers: Hyperlipidemia type: unspecified Qualified Code(s): E78.5 - Hyperlipidemia, unspecified (7) CAD (coronary artery disease) Current Visit: Yes Status: Chronic Assessment and plan: as per patient he is not on aspirin or plavix. Will no start the patient on anti-platelets due to acute bleeding Qualifiers: Coronary Disease-Associated Artery/Lesion type: unspecified vessel or lesion type [place] vs. transplanted heart: unspecified whether [place] or transplanted heart Associated angina: angina presence unspecified Qualified Code(s): I25.10 - Atherosclerotic heart disease of [place] coronary artery without angina pectoris (8) CKD (chronic kidney disease) Current Visit: Yes Status: Chronic Assessment and plan: kidney function at baseline when compare to 1 year ago. avoid nephrotoxic medications as possible. Qualifiers: Chronic kidney disease stage: stage 2 (mild) Qualified Code(s): N18.2 - Chronic kidney disease, stage 2 (mild) (9) Elevated troponin Current Visit: Yes Status: Acute Assessment and plan: patient reports no chest pain, shortness of breath, nausea or vomiting. serial trops ordered consider cardiology consult if troponin trends up. - Time Spent With Patient Total time spent is greater than 50% in coordination of care (as documented) at patient's floor/unit and/or counseling patient: Greater than 35 minutes (45)
[2018-07-12 12:20] LABS: Basophils % 0.2 %; Eosinophils % 0.1 %; Hematocrit 34.6 % (37.5-50.1); Hemoglobin 11.2 g/dL (12.9-16.9); Immature Granulocytes % 0.7 % (0-4); Immature Platelets 4.5 % (1.1-6.1); Lymphocytes # 1.1 K/mcL (0.6-4.6); Mean Corpuscular HGB Conc 32.4 g/dL (31.6-35.5); Mean Corpuscular Hemoglobin 27.8 pg (28.0-33.3); Mean Corpuscular Volume 85.9 fL (83.0-100.0); Mean Platelet Volume 10.9 fL (9.4-12.4); Monocytes % 9.3 %; Neutrophils # 8.5 K/mcL (1.6-8.9); Platelet Count 166 K/mcL (140-400); Red Blood Count 4.03 M/mcL (4.19-5.50); Red Cell Distribution Width 13.9 % (11.5-14.5); Segmented Neutrophils % 79.7 %
[2018-07-12 12:50] LABS: Prothrombin Time 22.4 Seconds (9.4-12.1)
[2018-07-12] MEDS ORDERED: *HR* Phytonadione 10 MG/ML AMPUL SQ ONE (12:55)
[2018-07-12] MEDS: Insulin LISPRO 300 UNITS/3 ML VIAL SQ SCH ×2 (13:16→18:56)
--- NOTE | 2018-07-12 13:41 | Electrocardiograph Report ---
[employer] Test Date: 2018-07-12 Pat Name: Colton De Leon Department: EXAM1 Room: [facility] Gender: M Transplant Coordinator: : 1950 Requested By: Xavier Portillo Order Number: [id number] Reading MD: Len Sanchez Measurements Intervals [place] Rate: 77 P: 0 PA: 170 QRS: 267 QRSD: 176 T: 80 QT: 470 QTc: 532 Interpretive Statements A-V dual-paced rhythm with some inhibition No further analysis attempted due to paced rhythm Baseline wander in lead(s) V6 Electronically Signed On 07-12-2018 13:39:55 EST by Len Sanchez
[2018-07-12] MEDS: Nicotine 21 MG PATCH.TD24 TD SCH (14:23)
[2018-07-12] MEDS: traMADol 50 MG TABLET PO PRN (14:24)
[2018-07-12 15:27] LABS: Adenovirus DETECTED (Not Detect); Bordetella Pertussis Not Detected (Not Detect); Chlamydophila pneumoniae Not Detected (Not Detect); Coronavirus 229E Not Detected (Not Detect); Coronavirus HKU1 Not Detected (Not Detect); Coronavirus NL63 Not Detected (Not Detect); Coronavirus OC43 Not Detected (Not Detect); Human Metapneumovirus Not Detected (Not Detect); Human Rhinovirus/Enterovirus Not Detected (Not Detect); Influenza A Subtype 2009 H1 Not Detected (Not Detect); Influenza A Untypeable Not Detected (Not Detect); Influenza B Not Detected (Not Detect); Mycoplasma pneumoniae Not Detected (Not Detect); Parainfluenza Virus 1 Not Detected (Not Detect); Parainfluenza Virus 2 Not Detected (Not Detect); Parainfluenza Virus 3 Not Detected (Not Detect); Parainfluenza Virus 4 Not Detected (Not Detect); Respiratory Syncytial Virus Not Detected (Not Detect)
[2018-07-12 18:02] LABS: Basophils % 0.2 %; Eosinophils % 0.3 %; Hematocrit 32.3 % (37.5-50.1); Hemoglobin 10.8 g/dL (12.9-16.9); Immature Granulocytes % 0.5 % (0-4); Lymphocytes # 1.4 K/mcL (0.6-4.6); Lymphocytes % 11.2 %; Mean Corpuscular HGB Conc 33.4 g/dL (31.6-35.5); Mean Corpuscular Hemoglobin 28.1 pg (28.0-33.3); Mean Corpuscular Volume 84.1 fL (83.0-100.0); Mean Platelet Volume 10.9 fL (9.4-12.4); Monocytes # 1.4 K/mcL (0.0-1.3); Monocytes % 11.1 %; Neutrophils # 9.3 K/mcL (1.6-8.9); Platelet Count 167 K/mcL (140-400); Red Blood Count 3.84 M/mcL (4.19-5.50); Red Cell Distribution Width 14.1 % (11.5-14.5); Segmented Neutrophils % 76.7 %
[2018-07-12 18:15] LABS: Bilirubin,Urine Negative (Negative); Blood,Urine Negative (Negative); Clarity,Urine Clear (Clear); Color,Urine Yellow (Yellow); Glucose,Urine (UA) Normal (Normal); Ketones,Urine Negative (Negative); Leukocyte Esterase,Urine Negative (Negative); Nitrite,Urine Negative (Negative); PH,Urine 5.5 pH Units (5.0-8.0); Protein,Urine Trace mg/dL (Neg-Trace); Specific Gravity,Urine > 1.030 (1.010-1.025); Urobilinogen,Urine Normal (Normal)
[2018-07-13] MEDS: Insulin LISPRO 300 UNITS/3 ML VIAL SQ SCH ×4 (00:17→18:04)
[2018-07-13 03:35] LABS: Basophils % 0.3 %; Eosinophils # 0.1 K/mcL (0.0-0.6); Eosinophils % 0.7 %; Hemoglobin 9.8 g/dL (12.9-16.9); Immature Granulocytes % 0.4 % (0-4); Lymphocytes # 1.5 K/mcL (0.6-4.6); Lymphocytes % 13.7 %; Mean Corpuscular HGB Conc 32.7 g/dL (31.6-35.5); Mean Corpuscular Hemoglobin 27.5 pg (28.0-33.3); Mean Corpuscular Volume 84.3 fL (83.0-100.0); Monocytes # 1.1 K/mcL (0.0-1.3); Monocytes % 10.4 %; Neutrophils # 7.9 K/mcL (1.6-8.9); Platelet Count 161 K/mcL (140-400); Red Blood Count 3.56 M/mcL (4.19-5.50); Red Cell Distribution Width 13.7 % (11.5-14.5); Segmented Neutrophils % 74.5 %
[2018-07-13 03:54] LABS: BUN/Creatinine Ratio 18 (6-26); Blood Urea Nitrogen 25 mg/dL (8-23); Calcium 8.4 mg/dL (8.6-10.3); Carbon Dioxide 23 mEq/L (23-29); Chloride 104 mEq/L (98-107); Chol/HDL Ratio 5.8 (0-4.9); Glucose 120 mg/dL (70-105); Magnesium 1.8 mg/dL (1.6-2.6); Osmolality,Calculated 288 (280-300); Phosphorous 2.8 mg/dL (2.7-4.5); Potassium 3.7 mEq/L (3.5-5.1); Sodium 136 mEq/L (136-145); eGFR For Non-African Americans 51 (> 60)
[2018-07-13] MEDS: Nicotine 21 MG PATCH.TD24 TD SCH (07:46)
[2018-07-13] MEDS: cefTRIAXone 1,000 MG in Water for inj. (sterile) 20 ML 10 ML IVP SCH (07:47)
[2018-07-13] MEDS: Azithromycin 500 MG in D5% in Water 250 ML IVPB SCH (07:47)
--- NOTE | 2018-07-13 09:51 | Internal Med Progress Note ---
<Scott aMcias - Last Filed: 07/13/18 16:15> Hospitalist Progress Note - Encounter Date of Encounter: 07/13/18 Time of Encounter: 08:30 - Subjective Interval History: Mr De Leon is a 68 yo male who presented with left abdominal distention and ecchymosis. Patient believes this occurred because of his excessive cough of the past week. He has a past medical history of A.fib, CAD, bradycardia, HTN, HLD, and a cerebellar CVA. Once in the ED patient received a chest CT; which showed intramuscular hemorrhage, possible right pneumonia or aspiration, and a benign long nodule, and abdominal CT showed abdominal wall hemorrhage without signs of organ injury. Today the patient was found upright, with minimal limitations in mobility. Patient denies chest pain, palpations. He admits to some bilateral LE edema. Patient denies SOB, dyspnea, COPD, or Asthma. Patient admits to wheezing and a cough. Patient stated his abdomen hurts when he coughs but denies any pain on palpation, denies pain with urination or defecation, denies pain when walking. Patient states there is a slight abdominal discomfort when he bends forward. - Exam Vitals: Temp Pulse Resp BP Pulse Ox 98.1 F 70 17 143/71 99 07/13/18 08:02 07/13/18 08:02 07/13/18 08:02 07/13/18 08:02 07/13/18 08:02 Exam: GEN: AA&O x3, WDWN, NAD Cardiac: RRR, no murmurs, no rubs, no edema Lungs: CTA b/l, + wheezing in the Right Lung Base GI: + warm to touch, no pain on palpation, + left side ecchymosis Neuro: CN I-XI grossly intact, 2/4 strength b/l of UE and LE. I & O 07/12/18 02:09 thru 07/13/18 09:07 Intake Total 1128.49 Output Total 125 Balance 1003.49 Weight 59.24 kg Intake: IV Fluids 478.49 Rocephin 1,000 MG In Water for 10 inj. (sterile) 10 ML @ 600 mls/ hr IVP ONCE ONE Rx#:[id number] Zithromax 500 mg In Dextrose 5% 250 250 ML @ 252 mls/hr IVPB ONCE ONE Rx#:[id number] Kcentra 500 Unit Vial 3,500 167.99 Unit In Empty Bag 1 Each @ 8.4 mls/hr IVPB ONCE ONE Rx#: [id number] AquaMephyton 5 MG In 0.9 % 50.5 Sodium Chloride 50 ML @ 100 mls /hr IVPB ONCE STA Rx#: [id number] Oral 650 Output: Urine 125 Other: Meal Breakfast Percent of Meal Consumed 30% Stool Characteristics Normal for Patient # Voids 1 Blood Glucose* [address]: Left lateral wall hemorrhage, possible right side pneumonia/atelecta sis, benign lung nodule Abdominal CT: Left lateral abdominal wall hemorrhage, hemorrhaging into abdo mali cavity. No organ injury. - Assessment and Plan (1) Intra abdominal hemorrhage Current Visit: Yes Status: Acute Assessment and Plan: Abdominal CT: Left lateral abdominal wall hemorrhage with bleeding into the abdominal cavity. No evidence of organ trauma. PT: 22.4, INR: 2.0, APTT: 41.9 [id number] Score: 6 points, 9.7% stroke risk. DC warfarin, Repeat coagulation study Repeat CBC q8HRs to trend the H&H Intra abdominal hemorrhage most likely secondary to persistent cough and elevate d INR levels. (2) Pneumonia Current Visit: Yes Status: Acute Assessment and Plan: Chest CT: Possible Aspiration or pneumonia of Right lower lobe Sputum cultures pending Continue IV Azithromycin, and Ceftriaxone. Check urine for atypicals. Continue incentive spirometry Pneumonia, likely CAP. (3) Supratherapeutic INR Current Visit: Yes Status: Acute Assessment and Plan: INR: 4.4 Warfarin held do to high INR Patient recieve one dose of IV kcentra Repeat INR (4) Elevated troponin Current Visit: Yes Status: Acute Assessment and Plan: Troponin I: 0.06 --> 0.06, EKG: A-V dual paced rhythm with some inhibition, No further analysis due to paced rhythm, baseline wander in V6 lead. Troponin I: Adynamic Possibly secondary to A.Fib Consider cardiology consult if troponin trends up (5) CAD (coronary artery disease) Current Visit: Yes Status: Chronic Assessment and Plan: as per patient he is not on aspirin or plavix. Patient not started on anti-platelets due to acute bleeding (6) HLD (hyperlipidemia) Current Visit: Yes Status: Chronic Assessment and Plan: Chemistry: Triglycerides: 187, Cholesterol: 140, LDL: 79, VLDL: 37, HDL: 24, Cholesterol/HDL ratio: 5.8 Continue to monitor labs (7) Atrial fibrillation, chronic Current Visit: No Status: Chronic Assessment and Plan: Per patient, not on rate controlled medications due to bradycardia Continue telemetry - Time Spent with Patient Total time spent is greater than 50% in coordination of care (as documented) at patient's floor/unit and/or counseling patient: Internal Medicine: Result - Labs CBC & Chem 7: 07/13/18 11:01 07/13/18 02:45 Labs: Short CBC 07/12/18 07/12/18 07/13/18 Range/Units 11:32 17:28 02:45 WBC 10.6 12.2 H 10.6 (4.3-11.1) K/mcL Hgb 11.2 L 10.8 L 9.8 L (12.9-16.9) g/dL Hct 34.6 L 32.3 L 30.0 L (37.5-50.1) % Plt Count 166 167 161 (140-400) K/mcL Neutrophils # 8.5 9.3 H 7.9 (1.6-8.9) K/mcL BMP 07/13/18 02:45 Sodium 136 Potassium 3.7 Chloride 104 Carbon Dioxide 23 BUN 25 H Creatinine 1.38 H Glucose 120 H Calcium 8.4 L Cardiac Enzymes 07/12/18 07/12/18 07/12/18 Range/Units 11:32 17:28 21:59 Troponin I 0.05 H* 0.06 H* 0.06 H* (< 0.04) ng/mL Urine 07/12/18 Range/Units 18:03 Urine Color Yellow (Yellow) Urine Clarity Clear (Clear) Urine pH 5.5 (5.0-8.0) pH Units Ur Specific [place] > 1.030 H (1.010-1.025) Urine Protein Trace (Neg-Trace) mg/dL Urine Glucose (UA) Normal (Normal) mg/dL - ABG Interpretation ABG results: PT/INR, D-dimer PT 22.4 Seconds (9.4-12.1) H D 07/12/18 11:32 Consult Discharge Plan - Plan Referrals: Zohaib Palafox Jr, MD [Primary Care Provider] - <Bradley Francotee - Last Filed: 07/13/18 20:55> Hospitalist Progress Note - Encounter Date of Encounter: 07/13/18 - Exam Vitals: Temp Pulse Resp BP Pulse Ox 98.9 F 76 17 139/71 97 07/13/18 19:34 07/13/18 19:34 07/13/18 19:34 07/13/18 19:34 07/13/18 19:41 - Assessment and Plan (1) Atrial fibrillation, chronic Current Visit: No Status: Chronic (2) Intra abdominal hemorrhage Current Visit: Yes Status: Acute (3) Supratherapeutic INR Current Visit: Yes Status: Acute (4) CAD (coronary artery disease) Current Visit: Yes Status: Chronic (5) Pneumonia Current Visit: Yes Status: Acute (6) DVT prophylaxis Current Visit: Yes Status: Acute (7) HLD (hyperlipidemia) Current Visit: Yes Status: Chronic (8) CKD (chronic kidney disease) Current Visit: Yes Status: Chronic (9) Elevated troponin Current Visit: Yes Status: Acute - Time Spent with Patient Total time spent is greater than 50% in coordination of care (as documented) at patient's floor/unit and/or counseling patient: Internal Medicine: Result - Labs CBC & Chem 7: 07/13/18 11:01 07/13/18 02:45 Labs: Short CBC 07/13/18 07/13/18 Range/Units 02:45 11:01 WBC 10.6 8.7 (4.3-11.1) K/mcL Hgb 9.8 L 8.9 L (12.9-16.9) g/dL Hct 30.0 L 27.2 L (37.5-50.1) % Plt Count 161 143 (140-400) K/mcL Neutrophils # 7.9 6.2 (1.6-8.9) K/mcL BMP 07/13/18 02:45 Sodium 136 Potassium 3.7 Chloride 104 Carbon Dioxide 23 BUN 25 H Creatinine 1.38 H Glucose 120 H Calcium 8.4 L Cardiac Enzymes 07/12/18 Range/Units 21:59 Troponin I 0.06 H* (< 0.04) ng/mL - ABG Interpretation ABG results: PT/INR, D-dimer PT 13.3 Seconds (9.4-12.1) H 07/13/18 12:14 - Impressions Impressions Abdomen/Pelvis CTA 07/13/18 16:18 IMPRESSION: Relatively stable large left abdominal wall hematoma extending into the left abdomen without any evidence of active bleeding. Colonic diverticulosis. Bilateral inguinal hernias, the right which contains a short segment of small bowel without evidence of strangulation or obstruction. D/ / [employer] / [employer] Interpreting Provider: [employer] - Attending Attestation I examined this patient and my medical decision-making was reviewed with the Medical Student. I agree with the documented findings, disposition and treatment plan as described except to the extent set forth below. Patient has no acute events. Abdominal pain is minimal per patient. On exam, there is bruising noted on left side of flank, no guarding, no rigidity, no rebound tenderness. Bowel sounds are normal, he is non-toxic appearing, mucus membranes are moist and there is no conjunctival pallor, skin is warm and dry. VS: reviewed, BP and HR in acceptable limits, hemodynamically stable. Labs: reviewed, hemoglobin on admission is 11-12 and currently dropped to 9.8. INR 4.4 now improved. Intra abdominal hemorrhage likely from bouts of coughing with supratherapeutic INR. At this time, patient is a poor candidate for anticoagulation since risks are outweighing benefits, and coumadin will be held. Cycle H&H and monitor hemodynamics. IR based on evaluation suggested to monitor with no intervention needed at this time. <Scott Macias - Last Filed: 07/13/18 16:15> (2) Pneumonia Qualifiers: Pneumonia type: due to unspecified organism Laterality: right Lung location: lower lobe of lung Qualified Code(s): J18.1 - Lobar pneumonia, unspecified organism (5) CAD (coronary artery disease) Qualifiers: Coronary Disease-Associated Artery/Lesion type: unspecified vessel or lesion type [place] vs. transplanted heart: unspecified whether [place] or transplanted heart Associated angina: angina presence unspecified Qualified Code(s): I25.10 - Atherosclerotic heart disease of [place] coronary artery without angina pectoris (6) HLD (hyperlipidemia) Qualifiers: Hyperlipidemia type: unspecified Qualified Code(s): E78.5 - Hyperlipidemia, unspecified <YeseniajaynefaheemMitch Juanjotee - Last Filed: 07/13/18 20:55> (4) CAD (coronary artery disease) Qualifiers: Coronary Disease-Associated Artery/Lesion type: unspecified vessel or lesion type [place] vs. transplanted heart: unspecified whether [place] or transplanted heart Associated angina: angina presence unspecified Qualified Code(s): I25.10 - Atherosclerotic heart disease of [place] coronary artery without angina pectoris (5) Pneumonia Qualifiers: Pneumonia type: due to unspecified organism Laterality: right Lung location: lower lobe of lung Qualified Code(s): J18.1 - Lobar pneumonia, unspecified organism (7) HLD (hyperlipidemia) Qualifiers: Hyperlipidemia type: unspecified Qualified Code(s): E78.5 - Hyperlipidemia, unspecified (8) CKD (chronic kidney disease) Qualifiers: Chronic kidney disease stage: stage 2 (mild) Qualified Code(s): N18.2 - Chronic kidney disease, stage 2 (mild)
[2018-07-13 11:23] LABS: Basophils % 0.2 %; Eosinophils # 0.1 K/mcL (0.0-0.6); Eosinophils % 1.5 %; Hematocrit 27.2 % (37.5-50.1); Hemoglobin 8.9 g/dL (12.9-16.9); Immature Granulocytes % 0.7 % (0-4); Lymphocytes # 1.3 K/mcL (0.6-4.6); Lymphocytes % 14.8 %; Mean Corpuscular HGB Conc 32.7 g/dL (31.6-35.5); Mean Corpuscular Hemoglobin 27.7 pg (28.0-33.3); Mean Corpuscular Volume 84.7 fL (83.0-100.0); Mean Platelet Volume 10.8 fL (9.4-12.4); Monocytes # 1.1 K/mcL (0.0-1.3); Monocytes % 12.4 %; Neutrophils # 6.2 K/mcL (1.6-8.9); Platelet Count 143 K/mcL (140-400); Red Blood Count 3.21 M/mcL (4.19-5.50); Red Cell Distribution Width 14.1 % (11.5-14.5); Segmented Neutrophils % 70.4 %
[2018-07-13 12:57] LABS: INR 1.2; Prothrombin Time 13.3 Seconds (9.4-12.1)
[2018-07-13] MEDS ORDERED: Isovue-370 500 ML BOTTLE IVP ONE (16:18)
[2018-07-13] MEDS ORDERED: 0.9 % Sodium Chloride 250 ML ONE (17:00)
[2018-07-13] MEDS: traMADol 50 MG TABLET PO PRN (21:46)
[2018-07-14 01:24] LABS: Basophils % 0.3 %; Eosinophils # 0.2 K/mcL (0.0-0.6); Hematocrit 29.4 % (37.5-50.1); Hemoglobin 9.6 g/dL (12.9-16.9); Lymphocytes # 1.3 K/mcL (0.6-4.6); Mean Corpuscular HGB Conc 32.7 g/dL (31.6-35.5); Mean Corpuscular Hemoglobin 27.7 pg (28.0-33.3); Mean Platelet Volume 10.6 fL (9.4-12.4); Monocytes # 1.1 K/mcL (0.0-1.3); Monocytes % 12.6 %; Platelet Count 150 K/mcL (140-400); Red Blood Count 3.46 M/mcL (4.19-5.50); Red Cell Distribution Width 13.8 % (11.5-14.5); Segmented Neutrophils % 69.1 %
[2018-07-14 01:34] LABS: INR 1.1; Prothrombin Time 12.6 Seconds (9.4-12.1)
[2018-07-14 01:41] LABS: BUN/Creatinine Ratio 21 (6-26); Blood Urea Nitrogen 23 mg/dL (8-23); Calcium 8.5 mg/dL (8.6-10.3); Carbon Dioxide 24 mEq/L (23-29); Chloride 103 mEq/L (98-107); Glucose 93 mg/dL (70-105); Osmolality,Calculated 285 (280-300); Potassium 3.6 mEq/L (3.5-5.1); Sodium 136 mEq/L (136-145); eGFR For Non-African Americans > 60 (> 60)
[2018-07-14] MEDS: Insulin LISPRO 300 UNITS/3 ML VIAL SQ SCH ×4 (03:35→17:21)
[2018-07-14] MEDS: cefTRIAXone 1,000 MG in Water for inj. (sterile) 20 ML 10 ML IVP SCH (08:32)
[2018-07-14] MEDS: Azithromycin 500 MG in D5% in Water 250 ML IVPB SCH (08:32)
[2018-07-14] MEDS: Nicotine 21 MG PATCH.TD24 TD SCH (08:33)
--- NOTE | 2018-07-14 09:00 | Internal Med Progress Note ---
<Andre Lima - Last Filed: 07/14/18 08:58> Hospitalist Progress Note - Encounter Date of Encounter: 07/14/18 Time of Encounter: 08:58 - Subjective Interval History: Patient did not have any acute events overnight. He continues to have intermittent pain in his left chest wall and flank that worsens with coughing. He denies sob, cough, abdominal pain. he is tolerating his diet and has had BM and no trouble with making urine. - Exam Vitals: Temp Pulse Resp BP Pulse Ox 98.6 F 61 17 122/65 98 07/14/18 06:57 07/14/18 06:57 07/14/18 06:57 07/14/18 06:57 07/14/18 06:57 Exam: General: pleasant, without distress Cardiovascualr: Regular rate and rhythm with no murmur, absent gallops or rubs, absent pedal edema, radial pulses 2 out of 4 Lungs: Clear to auscultation bilaterally, not in respiratory distress Abdomen: Soft nontender, nondistended positive bowel sounds, absent hepatomegaly Skin: ecchymosis left chest wall and abdomen MSK: absent clubbing, cyanosis, joints without swelling Neuro: Alert to self, place not time. Psych: good insight and judgment - Assessment and Plan (1) Intra abdominal hemorrhage Current Visit: Yes Status: Acute Assessment and Plan: repeat CT abdomen pelvis shows stable hematoma without any evidence of active bleeding s/p 1unit [facility] INR 1.1 holding coumadin hgb stable cbc am. if stable likely d/c tomorrow. (2) Atrial fibrillation, chronic Current Visit: Yes Status: Chronic Assessment and Plan: hx of atrial fibrillation not on rate controlled coumadin on hold due to bleed [id number]: 4 for (age, hx of CVA, HTN) patient will need to be reevaluated by PCP for warfarin continuation but at point of discharge patient will have this medication be discontinued. (3) CKD (chronic kidney disease) Current Visit: Yes Status: Chronic Assessment and Plan: stable (4) Community acquired pneumonia Current Visit: Yes Status: Acute Assessment and Plan: CT chest on admission showed right lower lobe airspace disease atelectasis vs pna. RIP + for adenovirus not requiring O2 supplementation on azithromycin and ceftriaxone day 3 of 5 (5) Elevated troponin Current Visit: Yes Status: Acute Assessment and Plan: adynamic troponin elevation EKG is paced rhythm likely 2nd to acute blood loss denies chest pain (6) HLD (hyperlipidemia) Current Visit: Yes Status: Chronic Assessment and Plan: patients cholesterol is 140 and ldl is 79 due to hx of CVA and CAD he would benefit from a statin will start patient on statin (7) Supratherapeutic INR Current Visit: Yes Status: Acute Assessment and Plan: reversed INR 1.1 DVT Prophylaxis: ambulate TID - Time Spent with Patient Total time spent is greater than 50% in coordination of care (as documented) at patient's floor/unit and/or counseling patient: Internal Medicine: Result - Labs CBC & Chem 7: 07/14/18 01:09 07/14/18 01:09 Labs: Short CBC 07/13/18 07/14/18 Range/Units 11:01 01:09 WBC 8.7 8.6 (4.3-11.1) K/mcL Hgb 8.9 L 9.6 L (12.9-16.9) g/dL Hct 27.2 L 29.4 L (37.5-50.1) % Plt Count 143 150 (140-400) K/mcL Neutrophils # 6.2 6.0 (1.6-8.9) K/mcL BMP 07/14/18 01:09 Sodium 136 Potassium 3.6 Chloride 103 Carbon Dioxide 24 BUN 23 Creatinine 1.07 Glucose 93 Calcium 8.5 L - ABG Interpretation ABG results: PT/INR, D-dimer PT 12.6 Seconds (9.4-12.1) H 07/14/18 01:09 - Impressions Impressions Abdomen/Pelvis CTA 07/13/18 16:18 IMPRESSION: Relatively stable large left abdominal wall hematoma extending into the left abdomen without any evidence of active bleeding. Colonic diverticulosis. Bilateral inguinal hernias, the right which contains a short segment of small bowel without evidence of strangulation or obstruction. D/ / [employer] / [employer] Interpreting Provider: [employer] Consult Discharge Plan - Plan Referrals: Zohaib Palafox Jr, MD [Primary Care Provider] - <Varghese Franco - Last Filed: 07/14/18 17:25> Hospitalist Progress Note - Encounter Date of Encounter: 07/14/18 - Exam Vitals: Temp Pulse Resp BP Pulse Ox 98.7 F 60 17 143/87 97 07/14/18 15:11 07/14/18 15:11 07/14/18 15:11 07/14/18 15:11 07/14/18 15:11 - Assessment and Plan (1) Atrial fibrillation, chronic Current Visit: Yes Status: Chronic (2) Intra abdominal hemorrhage Current Visit: Yes Status: Acute (3) Supratherapeutic INR Current Visit: Yes Status: Acute (4) CAD (coronary artery disease) Current Visit: Yes Status: Chronic (5) Pneumonia Current Visit: Yes Status: Acute (6) DVT prophylaxis Current Visit: Yes Status: Acute (7) HLD (hyperlipidemia) Current Visit: Yes Status: Chronic (8) CKD (chronic kidney disease) Current Visit: Yes Status: Chronic (9) Elevated troponin Current Visit: Yes Status: Acute - Time Spent with Patient Total time spent is greater than 50% in coordination of care (as documented) at patient's floor/unit and/or counseling patient: Internal Medicine: Result - Labs CBC & Chem 7: 07/14/18 01:09 07/14/18 01:09 Labs: Short CBC 07/14/18 Range/Units 01:09 WBC 8.6 (4.3-11.1) K/mcL Hgb 9.6 L (12.9-16.9) g/dL Hct 29.4 L (37.5-50.1) % Plt Count 150 (140-400) K/mcL Neutrophils # 6.0 (1.6-8.9) K/mcL BMP 07/14/18 01:09 Sodium 136 Potassium 3.6 Chloride 103 Carbon Dioxide 24 BUN 23 Creatinine 1.07 Glucose 93 Calcium 8.5 L - ABG Interpretation ABG results: PT/INR, D-dimer PT 12.6 Seconds (9.4-12.1) H 07/14/18 01:09 - Impressions Impressions Abdomen/Pelvis CTA 07/13/18 16:18 IMPRESSION: Relatively stable large left abdominal wall hematoma extending into the left abdomen without any evidence of active bleeding. Colonic diverticulosis. Bilateral inguinal hernias, the right which contains a short segment of small bowel without evidence of strangulation or obstruction. D/ / [employer] / [employer] Interpreting Provider: [employer] - Attending Attestation I examined this patient and my medical decision-making was reviewed with the Resident Physician. I agree with the documented findings, disposition and treatment plan as described except to the extent set forth below. <Andre Lima - Last Filed: 07/14/18 08:58> (3) CKD (chronic kidney disease) Qualifiers: Chronic kidney disease stage: stage 2 (mild) Qualified Code(s): N18.2 - Chronic kidney disease, stage 2 (mild) (4) Community acquired pneumonia Qualifiers: Laterality: left (6) HLD (hyperlipidemia) Qualifiers: Hyperlipidemia type: unspecified Qualified Code(s): E78.5 - Hyperlipidemia, unspecified <Varghese Franco - Last Filed: 07/14/18 17:25> (4) CAD (coronary artery disease) Qualifiers: Coronary Disease-Associated Artery/Lesion type: unspecified vessel or lesion type [place] vs. transplanted heart: unspecified whether [place] or transplanted heart Associated angina: angina presence unspecified Qualified Code(s): I25.10 - Atherosclerotic heart disease of [place] coronary artery without angina pectoris (5) Pneumonia Qualifiers: Pneumonia type: due to unspecified organism Laterality: right Lung location: lower lobe of lung Qualified Code(s): J18.1 - Lobar pneumonia, unspecified organism (7) HLD (hyperlipidemia) Qualifiers: Hyperlipidemia type: unspecified Qualified Code(s): E78.5 - Hyperlipidemia, unspecified (8) CKD (chronic kidney disease) Qualifiers: Chronic kidney disease stage: stage 2 (mild) Qualified Code(s): N18.2 - Chronic kidney disease, stage 2 (mild)
[2018-07-14] MEDS: traMADol 50 MG TABLET PO PRN (23:47)
[2018-07-15] MEDS: Insulin LISPRO 300 UNITS/3 ML VIAL SQ SCH ×2 (01:31→06:07)
[2018-07-15 03:46] LABS: Hematocrit 27.1 % (37.5-50.1)
[2018-07-15 07:38] VITALS: BP 152/79
--- NOTE | 2018-07-15 08:49 | Discharge Summary ---
- NOTES TO OUTPATIENT PROVIDER Notes to Outpatient Provider: Repeat CBC. Coumadin discontinued on discharge. Address if this needs restarted or not. Orders not resulted at time of discharge: Pending orders 07/12/18 10:16 Sputum Culture [Culture,Sputum with Gram Stain] [] Stat Date of Encounter: 07/15/18 Time of Encounter: 08:46 - Discharge Diagnosis (1) Intra abdominal hemorrhage Priority: Primary Status: Acute (2) Atrial fibrillation, chronic Priority: Secondary Status: Chronic (3) Supratherapeutic INR Priority: Secondary Status: Acute (4) CAD (coronary artery disease) Priority: Secondary Status: Chronic Qualifiers: Coronary Disease-Associated Artery/Lesion type: unspecified vessel or lesion type [place] vs. transplanted heart: unspecified whether [place] or transplanted heart Associated angina: angina presence unspecified Qualified Code(s): I25.10 - Atherosclerotic heart disease of [place] coronary artery without angina pectoris (5) Pneumonia Priority: Secondary Status: Acute Qualifiers: Pneumonia type: due to unspecified organism Laterality: right Lung location: lower lobe of lung Qualified Code(s): J18.1 - Lobar pneumonia, unspecified organism (6) DVT prophylaxis Priority: Secondary Status: Acute (7) HLD (hyperlipidemia) Priority: Secondary Status: Chronic Qualifiers: Hyperlipidemia type: unspecified Qualified Code(s): E78.5 - Hyperlipidemia, unspecified (8) CKD (chronic kidney disease) Priority: Secondary Status: Chronic Qualifiers: Chronic kidney disease stage: stage 2 (mild) Qualified Code(s): N18.2 - Chronic kidney disease, stage 2 (mild) (9) Elevated troponin Priority: Secondary Status: Acute Hospital course: Mr. De Leon is a 68 year old male PMH of [place] on warfarin, CAD s/p CABG in the 90s, bradycardia s/p pacemaker, Cerebellar cva, HTN, HLD and right knee replacement. Patient presented to the ED due to swelling to the left side of his abdomen. He reported having flu like symptoms for the past 4-5 days associated with productive cough of pink/yellow sputum and subjective fever. He thought he was having a viral illness. and decided to waited out at home, but for the past 34 hours every time he coughed he has having abdominal discomfort and noticed the left side of his stomach was getting swollen and had developed some skin hematoma on the LLQ and decided to come to the ED. He denies chest pain, nausea or vomiting. denies see blood in his urine or stool. Patient was found to have a supratherapeutic INR and a left lateral abdominal wall hemorrhage with adjacent hemorrhage extending into the abdominal cavity. Hospital Course: He was admitted for further care. IR was consulted and recommended conservative management. He was given 5 mg of Vitamin K. INR then increased to normal levels. He had borderline elevated troponin was borderline elevated at 0.05 and remained at 0.06. He was asymptomatic. Hemoglobin was 12.3 on admission and dropped as low as 8.9 over the course of 1-2 days. She received 1 unit of PRBC with monitoring and had no acute events after further monitoring. The patient remained hemodynamically stable. A CTA abdomen showed stable hematoma. He was discharged home in stable condition. Coumadin discontinued on discharge and patient agrees to follow-up with primary care physician and discuss anticoagulation. - Time Spent with Patient Total time spent providing and/or coordinating discharge services: - Discharge Medications Prescriptions: New Atorvastatin [Lipitor] 40 mg PO HS #30 tablet Nicotine Patch [Nicoderm] 21 mg TD DAILY #30 patch.[email or web address] Discontinued Warfarin [Coumadin] 5 mg PO [id number] Warfarin [Coumadin] 7.5 mg PO TH Home Medications: Atorvastatin [Lipitor] 40 mg PO HS #30 tablet 07/15/18 [Rx] Nicotine Patch [Nicoderm] 21 mg TD DAILY #30 patch.td24 07/15/18 [Rx] Allergies/Adverse Reactions: Allergy/AdvReac Type Severity Reaction Status Date / Time vancomycin Allergy RED MAN Verified 07/12/18 17:46 SYNDROM Date of admission: 07/12/18 09:16 Primary care physician: Zohaib Palafox Jr, MD Consults: 07/12/18 07:08 Consult to Interventional Radiology [CONS] Stat Consulting Provider: Radiology Interventional Cols Reason for Consult: Abn abd CT scan, hematoma Time Notified: 07:09 Call Completed: Yes Discharging clinician: Varghese Franco - Constitutional Vitals: Temp Pulse Resp BP Pulse Ox 98.1 F 62 16 152/79 98 07/15/18 07:34 07/15/18 07:34 07/15/18 07:34 07/15/18 07:34 07/15/18 07:34 Exam: General: pleasant, without distress Cardiovascualr: Regular rate and rhythm with no murmur, absent gallops or rubs, absent pedal edema, radial pulses 2 out of 4 Lungs: Clear to auscultation bilaterally, not in respiratory distress Abdomen: Soft nontender, nondistended positive bowel sounds, absent hepatomegaly Skin: ecchymosis left chest wall and abdomen MSK: absent clubbing, cyanosis, joints without swelling Neuro: Alert to self, place not time. Psych: good insight and judgment - Patient Status Disposition: Home, Self-Care Condition: Good Functional capacity at discharge: independent ambulation Overall status at discharge: patient is progressing back to baseline - Discharge Instructions Follow Up With: Zohaib Palafox Jr, MD [Primary Care Provider] - - Diet and Activity Activity: increase activity as tolerated Diet: advance to your usual diet
[2018-07-15] MEDS: Nicotine 21 MG PATCH.TD24 TD SCH (08:55)
[2018-07-15] MEDS: cefTRIAXone 1,000 MG in Water for inj. (sterile) 20 ML 10 ML IVP SCH (08:56)
[2018-07-15] MEDS: Azithromycin 500 MG in D5% in Water 250 ML IVPB SCH (09:11)
== END 2018-07-15 11:05 | disposition home or self-care (01) ==
LOC: 2SOUTHHOLD 02:09 → EMEROOARM 02:09 → SUATTDRO 09:16 → 2SOUTHHOLD 09:50 → 3NENU 07-14 18:13
PROVIDERS: ADMIT Internal Medicine; ATTEND Student in an Organized Health Care Education/Training Program